=== PATIENT | female | born 1960 | race African-American/Black ===

== ENCOUNTER 2021-01-31 08:50 | Emergency (ER) | payer OTHER ==
[2021-01-31 08:56] VITALS: TEMP 98; BMI 31.3
[2021-01-31] MEDS ORDERED: ACETAMINOPHEN 1000 MG/100 ML VIAL (NON FORMULARY) IVPB ONE (09:39)
[2021-01-31] MEDS ORDERED: LACTATED RINGERS SOLUTION 1000 ML INFUS.BAG IV ONE (09:39)
[2021-01-31] MEDS ORDERED: MAG HYDROX/AL HYDROX/SIMETH 30 ML UNIT-DOSE CUP PO ONE (09:40)
[2021-01-31] MEDS ORDERED: FAMOTIDINE 20 MG/50 ML IVPB 20 MG/50 ML MG IVPB ONE ×2 (09:40→09:55)
[2021-01-31] MEDS ORDERED: MAG HYDROX/AL HYDROX/SIMETH 30 ML UNIT-DOSE CUP ONE (09:55)
[2021-01-31] MEDS ORDERED: ACETAMINOPHEN INJECTION 100 ML IVPB ONE (09:55)
[2021-01-31 10:26] LABS: BASO % 0.6 % (0-2.0); EOS % 0.7 % (0-4.5); HEMATOCRIT 41.3 % (32.4-45.2); HEMOGLOBIN 13.6 GM/dL (10.7-15.3); LYMPH % 20.8 % (8-40); MCH 27.5 pg (25.7-33.7); MEAN CELL VOLUME 83.4 fl (80-96); MEAN PLT VOLUME 9.1 fl (7.5-11.1); MONO % 7.4 % (3.8-10.2); NEUT % 70.5 % (42.8-82.8); PLATELET COUNT 295 K/MM3 (134-434); RBC 4.96 M/mm3 (3.60-5.2); RDW 13.8 % (11.6-15.6); WHITE BLOOD COUNT 9.1 K/mm3 (4.0-10.0)
[2021-01-31 10:47] LABS: CALCIUM 9.7 mg/dL (8.5-10.1)
[2021-01-31 10:48] LABS: ALBUMIN 3.8 g/dl (3.4-5.0); BLOOD UREA NITROGEN 10.6 mg/dL (7-18)
[2021-01-31 10:51] LABS: CREATININE 0.8 mg/dL (0.55-1.3)
[2021-01-31 10:52] LABS: BILIRUBIN,TOTAL 0.5 mg/dL (0.2-1)
[2021-01-31 10:53] LABS: TOT PROT 7.3 g/dl (6.4-8.2)
[2021-01-31 11:59] LABS: URINE APPEARANCE CLEAR; URINE BILIRUBIN NEGATIVE (NEGATIVE); URINE COLOR YELLOW; URINE GLUCOSE (UA) NEGATIVE (NEGATIVE); URINE KETONE 1+ (NEGATIVE); URINE LEUK ESTERASE NEGATIVE (NEGATIVE); URINE NITRITE NEGATIVE (NEGATIVE); URINE PROTEIN NEGATIVE (NEGATIVE); URINE UROBILINOGEN 0.2 mg/dL (0.2-1.0)
[2021-01-31 14:46] VITALS: BP 171/86; PULSE 77
== END 2021-01-31 14:55 | disposition home or self-care (01) ==
LOC: JER 08:50
PROC: 3E033NZ Introduction of Analgesics, Hypnotics, Sedatives into Peripheral Vein, Percutaneous Approach (ICD-10-PCS; principal; 2021-01-31)
PROC: 3E033GC Introduction of Other Therapeutic Substance into Peripheral Vein, Percutaneous Approach (ICD-10-PCS; 2021-01-31)
DX: K52.9 Noninfective gastroenteritis and colitis, unspecified (principal)
CPT/HCPCS: 36415; 71046-TC-FY; 74177-TC; 80053; 81003; 83690; 85025; 87086; 93005; 93010; 99285-25; J0131; Q9967

== ENCOUNTER 2021-02-01 08:55 | Emergency (ER) | payer OTHER ==
[2021-02-01 09:04] VITALS: TEMP 98.3; BMI 31.3
[2021-02-01 10:10] LABS: BASO % 0.6 % (0-2.0); EOS % 0.6 % (0-4.5); HEMATOCRIT 40.3 % (32.4-45.2); HEMOGLOBIN 13.3 GM/dL (10.7-15.3); LYMPH % 15.4 % (8-40); MCH 27.3 pg (25.7-33.7); MEAN CELL VOLUME 82.7 fl (80-96); MEAN PLT VOLUME 9.4 fl (7.5-11.1); MONO % 7.1 % (3.8-10.2); NEUT % 76.3 % (42.8-82.8); PLATELET COUNT 333 K/MM3 (134-434); RBC 4.87 M/mm3 (3.60-5.2); RDW 13.9 % (11.6-15.6); WHITE BLOOD COUNT 12.4 K/mm3 (4.0-10.0)
[2021-02-01 10:16] LABS: INR 1.09 (0.83-1.09); PROTHROMBIN TIME (PATIENT) 13.2 SEC (9.7-13.0)
[2021-02-01 10:19] LABS: ACTIVATED PTT 29.6 SECONDS (25.2-36.5)
[2021-02-01 10:34] LABS: CALCIUM 9.5 mg/dL (8.5-10.1)
[2021-02-01 10:35] LABS: ALBUMIN 3.7 g/dl (3.4-5.0); BLOOD UREA NITROGEN 8.9 mg/dL (7-18)
[2021-02-01 10:38] LABS: CREATININE 0.7 mg/dL (0.55-1.3)
[2021-02-01 10:40] LABS: BILIRUBIN,TOTAL 0.7 mg/dL (0.2-1)
[2021-02-01] MEDS ORDERED: ACETAMINOPHEN 500 MG TABLET (FP) PO ONE (12:22)
[2021-02-01] MEDS ORDERED: ACETAMINOPHEN 500 MG TABLET (FP) ONE (12:41)
[2021-02-01 12:57] VITALS: BP 147/86; PULSE 84
== END 2021-02-01 12:57 | disposition home or self-care (01) ==
LOC: JER 08:55
DX: K62.5 Hemorrhage of anus and rectum (principal)
CPT/HCPCS: 36415; 80053; 82272; 85025; 85610; 85730; 93005; 93010; 99284-25

== ENCOUNTER 2023-11-21 07:38 | Emergency (ER) | payer OTHER ==
[2023-11-21] MEDS ORDERED: ACETAMINOPHEN INJECTION 100 ML IVPB ONE (08:40)
[2023-11-21] MEDS ORDERED: ONDANSETRON 4 MG/2 ML VIAL ONE (08:40)
[2023-11-21 08:44] VITALS: BMI 30.4
[2023-11-21] MEDS: ACETAMINOPHEN 1000 MG/100 ML BAG IVPB ONE (09:00)
[2023-11-21] MEDS: ONDANSETRON 4 MG/2 ML VIAL IVPUSH ONE (09:00)
[2023-11-21] MEDS: LACTATED RINGERS SOLUTION 1000 ML INFUS.BAG IV ONE (09:00)
[2023-11-21 09:12] LABS: URINE APPEARANCE CLOUDY; URINE BILIRUBIN NEGATIVE (NEGATIVE); URINE COLOR YELLOW; URINE GLUCOSE (UA) TRACE (NEGATIVE); URINE KETONE NEGATIVE (NEGATIVE); URINE LEUK ESTERASE NEGATIVE (NEGATIVE); URINE NITRITE NEGATIVE (NEGATIVE); URINE PROTEIN TRACE (NEGATIVE); URINE UROBILINOGEN 0.2 mg/dL (0.2-1.0)
[2023-11-21 09:13] LABS: BASO % 0.6 % (0-2.0); EOS % 0.3 % (0-4.5); HEMATOCRIT 39.3 % (32.4-45.2); HEMOGLOBIN 13.1 GM/dL (10.7-15.3); LYMPH % 17.9 % (8-40); MCH 27.5 pg (25.7-33.7); MCHC 33.5 g/dl (32.0-36.0); MEAN CELL VOLUME 82.2 fl (80-96); MEAN PLT VOLUME 8.8 fl (7.5-11.1); MONO % 4.8 % (3.8-10.2); NEUT % 76.4 % (42.8-82.8); PLATELET COUNT 325 10^3/uL (134-434); RBC 4.78 M/mm3 (3.60-5.2); RDW 14.4 % (11.6-15.6); WHITE BLOOD COUNT 10.8 K/mm3 (4.0-10.0)
[2023-11-21 09:18] LABS: PROTHROMBIN TIME (PATIENT) 11.6 SEC (9.7-13.0)
[2023-11-21 09:21] LABS: ACTIVATED PTT 28.9 SECONDS (25.2-36.5)
[2023-11-21 09:29] LABS: POTASSIUM 3.2 mmol/L (3.5-5.1)
[2023-11-21 09:31] LABS: CALCIUM 9.8 mg/dL (8.5-10.1)
[2023-11-21 09:33] LABS: ALBUMIN 3.8 g/dl (3.4-5.0); BLOOD UREA NITROGEN 13.1 mg/dL (7-18); MAGNESIUM 1.6 mg/dL (1.8-2.4)
[2023-11-21 09:36] LABS: BILIRUBIN,TOTAL 0.5 mg/dL (0.2-1); TOT PROT 7.2 g/dl (6.4-8.2)
[2023-11-21] MEDS ORDERED: KCL 10 MEQ IVPB 20 MEQ/200 ML INFUS.BAG IVPB ONE (09:59)
[2023-11-21] MEDS ORDERED: MAGNESIUM SULFATE IN WATER 2 GM/50 ML IVPB IVPB ONE (09:59)
[2023-11-21 10:36] VITALS: TEMP 97.5
[2023-11-21] MEDS: MAGNESIUM SULF 50% (8.12 MEQ/2 ML-1 GM VIAL) IVPB ONE (10:46)
[2023-11-21] MEDS: KCL 10 MEQ IVPB 10 MEQ/100 ML INFUS.BAG IVPB SCH (10:46)
[2023-11-21 14:46] VITALS: BP 121/52; PULSE 76; RESP 16
== END 2023-11-21 14:56 | disposition home or self-care (01) ==
LOC: JER 07:38
PROC: 3E030NZ Introduction of Analgesics, Hypnotics, Sedatives into Peripheral Vein, Open Approach (ICD-10-PCS; principal; 2023-11-21)
PROC: 3E030GC Introduction of Other Therapeutic Substance into Peripheral Vein, Open Approach (ICD-10-PCS; 2023-11-21)
PROC: 3E030GC Introduction of Other Therapeutic Substance into Peripheral Vein, Open Approach (ICD-10-PCS; 2023-11-21)
DX: R10.31 Right lower quadrant pain (principal); R11.2 Nausea with vomiting, unspecified; N20.0 Calculus of kidney; Z20.822 Contact with and (suspected) exposure to COVID-19
CPT/HCPCS: 0241U-QW; 36415; 71045-TC-FY; 74177-TC; 76705-TC; 80053; 81003; 83690; 83735; 85025; 85610; 85730; 86850; 86900; 86901; 87086; 93005; 93010; 99285-25; J0131; Q9967

== ENCOUNTER 2024-10-04 06:49 | Emergency (ER) | payer OTHER ==
[2024-10-04 07:01] VITALS: BP 121/85; PULSE 69; RESP 18; TEMP 98.4; BMI 30.8
[2024-10-04] MEDS ORDERED: ACETAMINOPHEN 325 MG TABLET (FP) ONE (08:48)
[2024-10-04] MEDS: ACETAMINOPHEN 325 MG TABLET (FP) PO ONE (08:58)
[2024-10-04 09:17] LABS: BASO % 1.7 % (0-2.0); EOS % 2.7 % (0-4.5); HEMATOCRIT 38.5 % (32.4-45.2); HEMOGLOBIN 12.7 GM/dL (10.7-15.3); LYMPH % 41.3 % (8-40); MCH 27.2 pg (25.7-33.7); MEAN CELL VOLUME 82.2 fl (80-96); MEAN PLT VOLUME 8.4 fl (7.5-11.1); MONO % 10.5 % (3.8-10.2); NEUT % 43.8 % (42.8-82.8); PLATELET COUNT 324 10^3/uL (134-434); RBC 4.68 M/mm3 (3.60-5.2); RDW 14.8 % (11.6-15.6); WHITE BLOOD COUNT 5.2 K/mm3 (4.0-10.0)
[2024-10-04 09:18] LABS: EPI CELLS >36 /uL (0-25.1); HYALINE CASTS 1 /uL (0-3.1); URINE APPEARANCE CLEAR; URINE BACTERIA 228 /uL (0-1359); URINE BILIRUBIN NEGATIVE (NEGATIVE); URINE COLOR YELLOW; URINE GLUCOSE (UA) NEGATIVE (NEGATIVE); URINE KETONE NEGATIVE (NEGATIVE); URINE LEUK ESTERASE 1+ (NEGATIVE); URINE NITRITE NEGATIVE (NEGATIVE); URINE PROTEIN NEGATIVE (NEGATIVE); URINE RBC 12 /uL (0-23.9); URINE UROBILINOGEN 0.2 mg/dL (0.2-1.0); URINE WBC 37 /uL (0-25.8)
[2024-10-04 09:32] LABS: POTASSIUM 4.2 mmol/L (3.5-5.1)
[2024-10-04 09:34] LABS: CALCIUM 9.5 mg/dL (8.5-10.1)
[2024-10-04 09:35] LABS: ALBUMIN 4.2 g/dl (3.4-5.0); BLOOD UREA NITROGEN 12.4 mg/dL (7-18)
[2024-10-04 09:38] LABS: CREATININE 0.8 mg/dL (0.55-1.3)
[2024-10-04 09:39] LABS: BILIRUBIN,TOTAL 0.5 mg/dL (0.2-1)
[2024-10-04 09:40] LABS: TOT PROT 7.5 g/dl (6.4-8.2)
[2024-10-04] MEDS ORDERED: KETOROLAC TROMETHAMINE 15 MG/ML VIAL ONE (11:45)
[2024-10-04] MEDS: KETOROLAC TROMETHAMINE 15 MG/ML VIAL IVPUSH ONE (12:10)
== END 2024-10-04 12:26 | disposition home or self-care (01) ==
LOC: JER 06:49
PROC: 3E0333Z Introduction of Anti-inflammatory into Peripheral Vein, Percutaneous Approach (ICD-10-PCS; principal; 2024-10-04)
DX: R10.31 Right lower quadrant pain (principal)
CPT/HCPCS: 36415; 74177-TC; 80053; 81003; 85025; 87077; 87086; 99285-25; Q9967